=== PATIENT | male | born 1995 | race Caucasian/White ===

== ENCOUNTER 2017-02-03 20:53 | Emergency (ER) | payer OTHER ==
[2017-02-03 21:01] VITALS: RESP 20; O2SAT 96
[2017-02-03] MEDS ORDERED: IBUPROFEN 600 MG TAB PO ONE ×2 (21:25→21:28)
[2017-02-03] MEDS ORDERED: ONDANSETRON DISINTEGRATING 4 MG TAB ONE (21:25)
[2017-02-03] MEDS ORDERED: ONDANSETRON 4 MG/2 ML VIAL ONE (21:25)
[2017-02-03] MEDS ORDERED: ONDANSETRON DISINTEGRATING 4 MG TAB PO ONE (21:27)
--- NOTE | 2017-02-03 22:51 | EDPHY ---
H & P Stated Complaint: skateboarding accident R ankle inj HPI/ROS: Chief complaint: Right ankle injury History of present illness: This is a 21-year-old male who presents to the emergency department for evaluation of a right ankle injury. Patient was skateboarding when he fell off, injuring his ankle. Since then he has had pain and swelling around the ankle and foot. It makes it difficult to ambulate. He denies other associated signs or symptoms including no open wounds, no abnormal coolness or paresthesias in the foot. No report of pain or trauma to the rest of the right lower extremity including the proximal lower leg and knee. No other injuries reported. He - Personal History Current Tetanus/Diphtheria Vaccine: Unsure Current Tetanus Diphtheria and Acellular Pertussis (TDAP): Unsure Tetanus Vaccine Date: 2013 - Medical/Surgical History Hx Asthma: No Hx Chronic Respiratory Disease: No Hx Diabetes: No Hx Cardiac Disease: No Hx Renal Disease: No Hx Cirrhosis: No Hx Alcoholism: No Hx HIV/AIDS: No Hx Splenectomy or Spleen Trauma: No Other PMH: denies - Social History Smoking Status: Never smoked - Physical Exam Exam: General appearance: Alert, nontoxic Musculoskeletal: Diffuse tenderness to the foot and ankle. The Achilles tendon appears intact. He can move the digits of the right foot. Pain moving the right ankle. The proximal lower leg, knee and upper leg are nontender. Vascular exam: Normal pulses and capillary refill in the foot Neurologic exam: The patient has normal sensation and motor function distal to the injury. Constitutional: Initial Vital Signs Temperature (C) 36.7 C 02/03/17 20:57 Heart Rate 104 H 02/03/17 20:57 Respiratory Rate 20 02/03/17 20:57 Blood Pressure 112/70 02/03/17 20:57 O2 Sat (%) 96 02/03/17 20:57 O2 Delivery Mode Room Air Allergies/Adverse Reactions: doxycycline Allergy (Verified 02/03/17 21:01) gluten Allergy (Verified 02/03/17 21:01) sertraline HCl [From Zoloft] Allergy (Verified 02/03/17 21:01) Medical Decision Making - Diagnostics Imaging: Imaging Impressions Ankle X-Ray 02/03/17 21:03 Impression: No acute osseous findings. Foot X-Ray 02/03/17 21:56 Impression: No acute osseous findings. Procedures: Procedure: Splint placement. A Sanders boot splint was applied. After application of the splint I returned and re-examined the patient. The splint was adequately immobilizing the joint and distal to the splint the patient's circulation and sensation was intact. ED Course/Re-evaluation: Patient seen under the supervision of my secondary supervising physician Dr. Parvez Sanchez. Patient presents to the emergency department for a right ankle injury. The foot is neurovascularly intact. X-rays are negative. He is splinted and placed on crutches. Referred to Orthopedics for recheck. Return precautions are given. Patient voiced understanding and agreement with plan. Differential Diagnosis: Included but not limited to contusion, sprain or strain, bony fracture - Data Points Medications Given: Discontinued Medications Ibuprofen (Motrin) 600 mg PO EDNOW ONE Stop: 02/03/17 21:29 Last Admin: 02/03/17 21:35 Dose: 600 mg Ondansetron HCl (Zofran Odt) 4 mg PO EDNOW ONE Stop: 02/03/17 21:28 Last Admin: 02/03/17 21:28 Dose: 4 mg Departure - Departure Disposition: Home, Routine, Self-Care Clinical Impression: Ankle sprain Qualifiers: Encounter type: initial encounter Involved ligament of ankle: unspecified ligament Laterality: right Qualified Code(s): S93.401A - Sprain of unspecified ligament of right ankle, initial encounter Condition: Good Instructions: Ankle Sprain (ED) Additional Instructions: Follow-up with orthopedics for continued evaluation and care Use ibuprofen 600 mg 3 times a day for the next 2-3 days for pain Ice the injury, 20 minutes on, 3 times daily for the next 3 days Elevate the injury as much as possible If symptoms worsen or new symptoms develop return to the emergency room for recheck Referrals: NONE *PRIMARY CARE P,. [Primary Care Provider] - As per Instructions Erin Tian MD [Medical Doctor] - As per Instructions
[2017-02-03 23:14] VITALS: BP 104/67; PULSE 77; TEMP 99
== END 2017-02-03 23:10 | disposition home or self-care (01) ==
DX: S93.401A Sprain of unspecified ligament of right ankle, initial encounter (principal); V00.131A Fall from skateboard, initial encounter; Y99.8 Other external cause status; Y93.51 Activity, roller skating (inline) and skateboarding
CPT/HCPCS: J2405; L4386

== ENCOUNTER 2017-02-17 01:11 | Emergency (ER) | payer OTHER ==
[2017-02-17 01:16] VITALS: BP 100/71; PULSE 75; RESP 16; TEMP 98.1; O2SAT 96
--- NOTE | 2017-02-17 01:46 | EDPHY ---
H & P Smoking Status: Never smoked Time Seen by Provider: 02/17/17 01:27 HPI/ROS: CHIEF COMPLAINT: Right ankle pain HISTORY OF PRESENT ILLNESS: 21-year-old male presents to the emergency department by private vehicle complaining of persisting pain and swelling in his right ankle. The patient was seen in the emergency department 2 weeks ago after he injured his right ankle while skateboarding. He had x-rays taken of the right ankle and right foot which were negative for fractures. He was placed in a splint and given orthopedic referral. Patient never followed up with orthopedic physician. He states that the pain is better although still has pain with certain range of motion certain movements. He also has pain with weight-bearing. He has not used a brace recently but is concerned that he still continues to have swelling. ROS: Denies numbness or tingling in his toes, pain is right calf or knee. Denies pain in his right foot. 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 Nontender to palpate over the medial malleolus. He has some mild tenderness with palpation over the distal fibula and lateral malleolus. There is no obvious laxity of the ligaments however he does have pain with inverting any vertigo the right ankle. Normal gait. Right foot is nontender. No abrasions or puncture wounds. No ecchymosis. (Rupal Leonard) Constitutional: Initial Vital Signs Temperature (C) 36.7 C 02/17/17 01:14 Heart Rate 75 02/17/17 01:14 Respiratory Rate 16 02/17/17 01:14 Blood Pressure 100/71 02/17/17 01:14 O2 Sat (%) 96 02/17/17 01:14 Allergies/Adverse Reactions: doxycycline Allergy (Verified 02/17/17 01:13) gluten Allergy (Verified 02/17/17 01:13) sertraline HCl [From Zoloft] Allergy (Verified 02/17/17 01:13) Home Medications: Medication Instructions Recorded NK [No Known Home Meds] 02/17/17 MDM/Departure - [facility] ED Course/Re-evaluation: 21-year-old male presents with persisting right ankle pain and swelling. I do not think repeat x-rays are indicated. Patient has no new injury since it was x -rayed 2 weeks ago. The patient has not followed up with orthopedic physician. Patient was given Dr. David Morris information who is on-call for Orthopedics. I encouraged him to have close follow-up with him. He may require imaging such as MRI possibly physical therapy. I do not think MRI in the emergency department is indicated. This was discussed with the patient and he verbalized understanding and agreed. (Rupal Leonard) PHYSICIAN DOCUMENTATION: The patient was evaluated and managed by the Physician [employer] As[employer]er. My co- signature indicates that I have reviewed this chart and I agree with the findings and plan of care as documented. I am the secondary supervising physician. (Kristine Redd) - Depart Disposition: Home, Routine, Self-Care Clinical Impression: Right ankle sprain Qualifiers: Encounter type: initial encounter Involved ligament of ankle: unspecified ligament Qualified Code(s): S93.401A - Sprain of unspecified ligament of right ankle, initial encounter Condition: Good Instructions: Ankle Sprain (ED) Additional Instructions: Weightbear as tolerated. Ibuprofen 600 mg every 8 hours as needed for pain. Follow up with orthopedic surgeon as discussed. Referrals: David Morris MD [Medical Doctor] - 2-3 days, call for appt. (Orthopedic surgeon on-call)
== END 2017-02-17 01:50 | disposition home or self-care (01) ==
DX: S93.401D Sprain of unspecified ligament of right ankle, subsequent encounter (principal); V00.138D Other skateboard accident, subsequent encounter

== ENCOUNTER 2017-08-28 21:43 | Emergency (ER) | payer OTHER ==
[2017-08-28 21:52] VITALS: BP 142/54; PULSE 88; RESP 18; TEMP 98.8; O2SAT 95
--- NOTE | 2017-08-28 23:04 | EDPHY ---
H & P Stated Complaint: FALL SNOWBOARDING TODAY, PAIN/SWELLING LEFT HAND HPI/ROS: HPI CHIEF COMPLAINT: Left hand pain. HISTORY OF PRESENT ILLNESS: Patient very pleasant 22-year-old male, otherwise healthy no significant medical history presents emergency room with left hand pain. Patient fell on his outstretched left hand while snowboarding this afternoon. Developed pain came to the emergency room. He has swelling and tenderness over the 5th metacarpal. It is not open. He is neurovascularly intact. Good distal pulse. Good cap refill. Sensation intact full range of motion. Past Medical History: No significant medical history Past Surgical History: No significant surgical history Social History: Denies daily use drugs alcohol tobacco products. Family History: Noncontributory ROS REVIEW OF SYSTEMS: A comprehensive 10 point review of systems is otherwise negative aside from elements mentioned in the history of present illness. Exam Constitutional triage nursing summary reviewed, vital signs reviewed, awake/ alert. Eyes normal conjunctivae and sclera, EOMI, PERRLA. HENT normal inspection, atraumatic, moist mucus membranes, no epistaxis, neck supple/ no meningismus, no raccoon eyes. Respiratory clear to auscultation bilaterally, normal breath sounds, no respiratory distress, no wheezing. Cardiovascular rate normal, regular rhythm, no murmur, no edema, distal pulses normal. Gastrointestinal soft, non-tender, no rebound, no guarding, normal bowel sounds, no distension, no pulsatile mass. Genitourinary no CVA tenderness. Musculoskeletal left hand: Tender palpation over the 5th metatarsal. Swelling present. Warm extremity. Good cap refill. Good pulse. Neurovascularly intact. 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 no midline vertebral tenderness, full range of motion, no calf swelling, no tenderness of extremities, no meningismus, good pulses, neurovascularly intact. Skin pink, warm, & dry, no rash, skin atraumatic. Neurologic awake, alert and oriented x 3, AAOx3, moves all 4 extremities equally, motor intact, sensory intact, CN II-XII intact, normal cerebellar, normal vision, normal speech. Psychiatric normal mood/affect. Heme/Lymph/Immune no lymphadenopathy. Differential Diagnosis: Includes but is not limited to in a particular order, hand fracture, soft tissue injury, contusion, dislocation Medical Decision Making: Plan for this patient x-ray left hand. Re-evaluation: X-ray of the left hand reviewed by myself. This shows a 5th metacarpal fracture. Image interpreted by myself. This patient be splinted ulnar gutter splint. Follow up with Hand surgery. He understands return emergency room if has worsening pain swelling or questions or concerns about a splint. He has multiple times he gets no blood while his splint I recommend that he does not. He should keep the splint clean and protected and dry. I do not recommend snowboarding while he has a hand fracture. Follow up with Hand surgery. Source: Patient - Personal History Current Tetanus/Diphtheria Vaccine: Yes Tetanus Vaccine Date: 2013 - Medical/Surgical History Hx Asthma: No Hx Chronic Respiratory Disease: No Hx Diabetes: No Hx Cardiac Disease: No Hx Renal Disease: No Hx Cirrhosis: No Hx Alcoholism: No Hx HIV/AIDS: No Hx Splenectomy or Spleen Trauma: No Other PMH: EYE SURG - Social History Smoking Status: Never smoked Constitutional: Initial Vital Signs Temperature (C) 37.1 C 08/28/17 21:47 Heart Rate 88 08/28/17 21:47 Respiratory Rate 18 08/28/17 21:47 Blood Pressure 142/54 H 08/28/17 21:47 O2 Sat (%) 95 08/28/17 21:47 O2 Delivery Mode Room Air Allergies/Adverse Reactions: doxycycline Allergy (Verified 08/28/17 21:47) gluten Allergy (Verified 08/28/17 21:47) sertraline HCl [From Zoloft] Allergy (Verified 08/28/17 21:47) Home Medications: Medication Instructions Recorded Ibuprofen [Motrin (*)] 800 mg PO Q6-8PRN #10 tab 08/28/17 Medical Decision Making - Diagnostics Imaging Results: Imaging Impressions Hand X-Ray 08/28/17 21:52 Impression: Acute nondisplaced fracture involving the mid-diaphyseal portion of the fifth finger metacarpal, with a mild dorsal apex angulation deformity. Departure - Departure Disposition: Home, Routine, Self-Care Clinical Impression: Hand fracture, left Qualifiers: Encounter type: initial encounter Fracture type: closed Qualified Code(s): S62.92XA - Unspecified fracture of left wrist and hand, initial encounter for closed fracture Condition: Good Instructions: Hand Fracture (ED) Additional Instructions: 1. Keep her splint clean, protected, dry. 2. I do not recommend that you snowboard while you have a hand fracture. 3. Please follow up with Hand surgery. 4. Return to the emergency room if you have any worsening symptoms questions or concerns. Referrals: NONE *PRIMARY CARE P,. [Primary Care Provider] - As per Instructions Erin Tian MD [Medical Doctor] - As per Instructions Prescriptions: Ibuprofen [Motrin (*)] 800 mg PO Q6-8PRN #10 tab
== END 2017-08-28 23:28 | disposition home or self-care (01) ==
DX: S62.92XA Unspecified fracture of left hand, initial encounter for closed fracture (principal); V00.311A Fall from snowboard, initial encounter; Y99.8 Other external cause status; Y93.23 Activity, snow (alpine) (downhill) skiing, snowboarding, sledding, tobogganing and snow tubing
CPT/HCPCS: A4565

== ENCOUNTER 2018-04-02 23:40 | Emergency (ER) | payer OTHER ==
[2018-04-02 23:47] VITALS: BP 105/87
== END 2018-04-03 00:05 | disposition left against medical advice (07) ==
DX: Z53.21 Procedure and treatment not carried out due to patient leaving prior to being seen by health care provider (principal)

== ENCOUNTER → 2018-04-12 | Outpatient (CLI) | payer OTHER ==
[~2018-04-12] MED LIST: IOPAMIDOL (ISOVUE-300) 100 ML BTL ONE
== END ==
LOC: FIMAGING 11:41
PROVIDERS: ATTEND Dermatology
DX: R10.84 Generalized abdominal pain (principal); R10.2 Pelvic and perineal pain
CPT/HCPCS: Q9967